=== PATIENT | male | born 1990 | race Caucasian/White ===

== ENCOUNTER 2019-11-02 12:45 | Emergency (ER) | payer SELFPAY ==
[~2019-11-02] VITALS: Ht 190.5 cm; Wt 185.5 kg
[2019-11-02 13:32] VITALS: BP 195/98
--- NOTE | 2019-11-02 13:52 | NUR ---
Julia alvarenga in [facility] - 11/02/19 at 1352 by [facility] Pt taken to bed 12.
--- NOTE | 2019-11-02 14:01 | NUR ---
PT TO ER BED 6
[2019-11-02] MEDS ORDERED: ONDANSETRON 4 MG ODT PO ONE (14:30)
--- NOTE | 2019-11-02 14:45 | NUR ---
Patient returned from CT scan. RN re-evaluating patient at bedside.
[2019-11-02 15:22] LABS: APPEARANCE,URINE CLEAR (CLEAR); BILIRUBIN,URINE NEGATIVE (NEGATIVE); BLOOD, URINE TRACE-L (NEGATIVE); COLOR,URINE YELLOW (YELLOW); LEUKOCYTE ESTERASE ,URINE NEGATIVE (NEGATIVE); NITRITE, URINE NEGATIVE (NEGATIVE); UGLUCOSE NEGATIVE (NEGATIVE)
[2019-11-02 15:23] LABS: BASOPHILS % (AUTO) 0.3 % (0.0-2.0); EOSINOPHILS % (AUTO) 0.1 % (0.0-4.0); HEMATOCRIT 46.1 % (36-52); LYMPHOCYTES # (AUTO) 0.7 K/uL (2.0-11.5); LYMPHOCYTES % (AUTO) 5.9 % (20.5-51.1); MEAN CORPUSCULAR HEMOGLOBIN 31 pg (27-31); MEAN CORPUSCULAR HGB CONC 35 g/dL (33-37); MEAN CORPUSCULAR VOLUME 88.7 fL (80-94); MONOCYTES # (AUTO) 0.4 K/uL (0.8-1.0); MONOCYTES % (AUTO) 3.4 % (1.7-9.3); NEUTROPHILS # (AUTO) 11.3 K/uL (1.8-7.7); NEUTROPHILS % (AUTO) 90.3 % (42.2-75.2); PLATELET COUNT (AUTO) 243 K/uL (140-450); RED CELL DISTRIBUTION WIDTH 13.1 % (11.6-13.7); WHITE BLOOD COUNT (AUTO) 12.5 K/uL (4.8-10.8)
[2019-11-02 15:31] LABS: WBC,URINE 0-5 /HPF (0-5)
[2019-11-02 15:32] LABS: ANION GAP 14.7 (8-16); CARBON DIOXIDE 27.5 mmol/L (21-32); CREATININE 1.2 mg/dL (0.7-1.3); POTASSIUM 3.2 mmol/L (3.5-5.1)
[2019-11-02 15:39] LABS: ALBUMIN 4.3 g/dL (3.4-5.0)
--- NOTE | 2019-11-02 16:16 | NUR ---
Patient discharged with v/s stable. Written and verbal after care instructions given and explained. Patient alert, oriented and verbalized understanding of instructions. Ambulatory with steady gait. All questions addressed prior to discharge. ID band removed. Patient advised to follow up with PMD. Rx of PERCOCET, MOTRIN, FLOMAX, ZOFRAN given. Patient educated on indication of medication including possible reaction and side effects. Opportunity to ask questions provided and answered.
[2019-11-02 16:17] VITALS: BP 148/94
== END 2019-11-02 16:16 | disposition home or self-care (01) ==
LOC: MED 12:45
DX: N20.1 Calculus of ureter (principal); R11.10 Vomiting, unspecified
CPT/HCPCS: 36415; 74176; 80053; 81001; 85025; 99284; Q0162

== ENCOUNTER 2021-11-22 02:04 | Emergency (ER) | payer SELFPAY ==
[~2021-11-22] VITALS: Ht 182.9 cm; Wt 136.1 kg
--- NOTE | 2021-11-22 02:04 | NUR ---
0200- Dr. Dang examining patient.
--- NOTE | 2021-11-22 02:16 | NUR ---
[place] [facility] WITH PT
[2021-11-22 03:11] VITALS: BP 148/89
[2021-11-22 03:32] VITALS: BP 148/89
--- NOTE | 2021-11-22 03:33 | NUR ---
Patient discharged with v/s stable. Written and verbal after care instructions given and explained. Patient verbalized understanding. Ambulatory with steady gait. All questions addressed prior to discharge. Advised to follow up with PMD.
== END 2021-11-22 03:33 | disposition home or self-care (01) ==
LOC: MED 02:04
DX: S21.212A Laceration without foreign body of left back wall of thorax without penetration into thoracic cavity, initial encounter (principal); E66.01 Morbid (severe) obesity due to excess calories; Z68.41 Body mass index [BMI] 40.0-44.9, adult; X99.8XXA Assault by other sharp object, initial encounter; Y93.89 Activity, other specified; Y92.89 Other specified places as the place of occurrence of the external cause; Y99.8 Other external cause status
CPT/HCPCS: 12005; 90471; 90715; 99283

== ENCOUNTER 2021-11-29 15:42 | Emergency (ER) | payer MEDICAID ==
[~2021-11-29] VITALS: Ht 190.5 cm; Wt 196.9 kg
[2021-11-29 15:48] VITALS: BP 212/111
--- NOTE | 2021-11-29 15:52 | NUR ---
PT SENT TO LOBBY
[2021-11-29 16:44] VITALS: BP 205/100
--- NOTE | 2021-11-29 16:44 | NUR ---
NO NURSING INTERVENTIONS PROVIDED
--- NOTE | 2021-11-29 16:44 | NUR ---
Patient discharged with v/s stable. Written and verbal after care instructions ABOUT LACERATION CARE given and explained. Patient verbalized understanding. Ambulatory with steady gait. All questions addressed prior to discharge. Advised to follow up with PMD.
== END 2021-11-29 16:44 | disposition home or self-care (01) ==
LOC: MED 15:42
DX: S21.202D Unspecified open wound of left back wall of thorax without penetration into thoracic cavity, subsequent encounter (principal); X58.XXXD Exposure to other specified factors, subsequent encounter
CPT/HCPCS: 99281

== ENCOUNTER 2023-11-03 14:44 | Emergency (ER) | payer MEDICAID, OTHER ==
[~2023-11-03] VITALS: Ht 177.8 cm; Wt 136.1 kg
[2023-11-03 15:01] VITALS: BP 186/107; PULSE 93; RESP 18; TEMP 98; O2SAT 98
[2023-11-03 15:40] LABS: BILIRUBIN,URINE NEGATIVE (NEGATIVE); BLOOD, URINE 1+ (NEGATIVE); COLOR,URINE YELLOW (YELLOW); LEUKOCYTE ESTERASE ,URINE 1+ (NEGATIVE); NITRITE, URINE NEGATIVE (NEGATIVE); PROTEIN,URINE TRACE (NEGATIVE); UGLUCOSE NEGATIVE (NEGATIVE); UROBILINOGEN,URINE 0.2 EU/dL (0.2 - 1)
[2023-11-03 15:52] LABS: APPEARANCE,URINE SLIGHTLY CLOUDY (CLEAR); BACTERIA,URINE 2+ /HPF (None Seen)
[2023-11-03 15:53] LABS: MUCUS,URINE None Seen /LPF (None Seen); SQUAMOUS EPITHELIAL CELL,UR 4-10 (MOD) /LPF (0-3 (FEW))
[2023-11-03] MEDS ORDERED: CEPH-588 PO (18:02)
[2023-11-04] MEDS ORDERED: CEPH-588 PO (10:42)
== END 2023-11-03 18:13 | disposition home or self-care (01) ==
LOC: MED 14:44
DX: N39.0 Urinary tract infection, site not specified (principal); R03.0 Elevated blood-pressure reading, without diagnosis of hypertension; Z79.899 Other long term (current) drug therapy
CPT/HCPCS: 81001; 87086; 87491; 99283